=== PATIENT | male | born 1975 | race Caucasian/White ===

== ENCOUNTER → 2025-06-17 15:33 | Outpatient (BNVA) | payer OTHER, SELFPAY | PROVIDERS: Visit Provider Physician Assistant | DX: S60.872A Other superficial bite of left wrist, initial encounter (principal); W54.0XXA Bitten by dog, initial encounter; Z02.79 Encounter for issue of other medical certificate | CPT/HCPCS: 99203 ==

== ENCOUNTER → 2025-08-12 14:54 | Outpatient (BNVA) | payer OTHER, SELFPAY | PROVIDERS: Visit Provider Physician Assistant | DX: S46.211A Strain of muscle, fascia and tendon of other parts of biceps, right arm, initial encounter (principal); X58.XXXA Exposure to other specified factors, initial encounter | CPT/HCPCS: 99204 ==

== ENCOUNTER → 2025-08-18 14:36 | Outpatient (BNVA) | payer OTHER, SELFPAY | PROVIDERS: Visit Provider Emergency Medicine | DX: S46.211A Strain of muscle, fascia and tendon of other parts of biceps, right arm, initial encounter (principal); X50.3XXA Overexertion from repetitive movements, initial encounter | CPT/HCPCS: 99213 ==

== ENCOUNTER 2025-08-21 11:35 | Outpatient (AMB) | payer OTHER, SELFPAY ==
--- NOTE | 2025-08-21 11:40 | A.OFFVIS_ITS ---
Vital Signs 08/21/25 11:43 Height 6 ft Weight 220 lb BMI 29.8 Intake Visit Reasons: WASHER BLANKET-WC Right proximal bicep tear DOI 08/11/25 Intake Note: Deondre is a 50 year old male who presents today as a new patient for an evaluation of right bicep status post work injury on 08/11/25. He was seen at work [facility] and referred to orthopedics. 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 He reports a little pain and bruising. States his muscle has moved down towards crease of his elbow. He has been out of since injury. Allergies No Known Allergies Allergy (Verified 08/21/25 11:42) Medication List - Last Reconciled 08/21/25 by Gina Martins PA-C metoprolol succinate ER 100 mg PO DAILY HPI Comments Details: History of Present Illness The patient is a 50 year old male presenting for evaluation of a right arm injury. The injury occurred on 08/11 while he was working, delivering propane. He slipped on a slope and fell on his extended right arm while carrying something, at which point he felt a snap and experienced immediate pain. Following the injury, he was seen at the [facility]. The patient expresses concern about his long-term strength and function, as he is very active, performing his own home remodeling and landscaping, and his job requires physical labor. 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 - Functional Status: The patient has been out of work since the injury. - Hobbies: He is active and performs his own home remodeling and landscaping. [facility] Social History (Updated 08/21/25 @ 11:43 by JESUS MANUEL Carlson) Patient Tobacco Use Status: Never used Tobacco Current occupation: right hand dominant Review of Systems Narrative Review of Systems - Musculoskeletal: Reports feeling a snap and immediate pain in his right arm at the time of injury. - Psychological: Denies claustrophobia. 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 - Strength is intact on rotator cuff testing; external rotation strength is good, internal rotation strength on belly press test is good, and lift-off test is good, with no reported pain during activation. Vital Signs: BMI result Body Mass Index 29.8 Assessment & Plan Assessment & Plan (1) Rupture of right proximal biceps tendon: Code(s): S46.211A - Strain of muscle, fascia and tendon of other parts of biceps, right arm, initial encounter Category: Medical Plan Plan 1. Traumatic Rupture Of Proximal Biceps Tendon Of Right Arm The patient sustained a traumatic rupture of the proximal long head of the biceps tendon in his right arm. He was counseled that this injury is typically managed non-operatively, as one of the two proximal attachments remains intact, and that surgical repair would be difficult now that nearly two weeks have passed since the injury due to tendon retraction and scarring. He was informed about the expected cosmetic outcome, a Kosta deformity, and the potential for a minor (approximately 5-10%) loss of strength, but was reassured that his overall long-term function should not be significantly limited. The patient's main concern is function, and he verbalized acceptance of the cosmetic outcome and the non-operative plan. A stat MRI of the right shoulder will be ordered, pending workman's compensation approval, to confirm the diagnosis, assess for any associated rotator cuff injury, and for documentation purposes. A referral will be placed for physical therapy at [facility] in [place], which will also require approval from workman's compensation. He will remain out of work with a restriction of no lifting, pushing, or pulling with the right upper extremity for 4-6 weeks, and an updated work note will be provided. Consent Patient was informed and verbally consented to the use of an ambient scribe for clinic note documentation during this visit. Orders: Orders MR shoulder RT wo con Today M75.81 - Other shoulder lesions, right shoulder PT Evaluation and Treatment Today S46.211A - Strain of muscle, fascia and tendon of other parts of biceps, right arm, initial encounter Coding Level of Care Code New Pt Level 3 (19186) Add On Problem Visit Only Diagnoses Rupture of right proximal biceps tendon S46.211A
[2025-08-21 11:43] VITALS: BMI 29.8
--- OUTSIDE RECORDS SUMMARY | 2025-08-21 13:42 | XMS_ITS | Patient Health Record ---
Author Organization [facility] Address [address] [place] [address] Care Team Providers Care Truck Terminal Manager Name Role Phone Sanjiv Farias MD Primary Care Provider Unavailab Alejandra Chung Unavailable [phone] Allergies No Known Allergies Reason For Referral No Information Medications Medication SIG (Take, Route, Frequency, Duration) Notes Start Date End Date Status Metoprolol Succinate 100 MG 1 capsule Orally Once a day Active Social History Tobacco Use: Social History Observation Description Date Details (start date - stop date) Never Smoker NA - NA Tobacco use other than smoking: Question Answer Notes Are you an other tobacco user? No Tobacco Control (Standard) Question Answer Notes Tobacco use: Nonsmoker Additional Findings: Tobacco non-user Current no nsmoker AUDIT-C (Standard) Question Answer Notes Did you have a drink contain ing alcohol in the past year? Yes How often did you have six o r more drinks on one occasion in the past year? Declined to specify (0 point) How many drinks did you have on a typical day when you were drinking in the past year? Declined to specify (0 point) How often did you have a dri nk containing alcohol in the past year? 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) Plantar fasciitis, bilateral (M72.2) Active confirmed Vital Signs Blood pressure diastolic 80 mm Hg 09/08/2024 Height 6 ft in 09/08/2024 Blood pressure systolic 140 mm Hg 09/08/2024 Weight 225 lbs 09/08/2024 BMI 30.51 kg/m2 09/08/2024 Encounters Encounter Location Date Provider Diagnosis [facility] [place] [address] 09/08/2024 Alejandra West Pain in right foot M79.671 ; Plantar fasciitis, bilateral M72.2 ; Calcaneal spur, right foot M77.31 ; Other myositis of right foot M60.871 ; Bursitis of right foot M77.51 ; Pain in left foot M79.672 ; Calcaneal spur, left foot M77.32 ; Other myositis of left foot M60.872 and Bursitis of left foot M77.52 Assessments Encounter Date Diagnosis (ICD Code) Assessment Notes Treatment Notes Treatment Clinical Notes Section Notes 09/08/2024 Pain in right foot (ICD-10 - M79.671) 09/08/2024 Plantar fasciitis, bilateral (ICD-10 - M72.2) Patient Educated with: HEEL CORD STRETCHES.pdf (HEEL CORD STRETCHES.pdf) Patient Educated with: RICE THERAPY.pdf (RICE THERAPY.pdf) 09/08/2024 Calcaneal spur, right foot (ICD-10 - M77.31) 09/08/2024 Other myositis of right foot (ICD-10 - M60.871) 09/08/2024 Bursitis of right foot (ICD-10 - M77.51) 09/08/2024 Pain in left foot (ICD-10 - M79.672) 09/08/2024 Calcaneal spur, left foot (ICD-10 - M77.32) 09/08/2024 Other myositis of left foot (ICD-10 - M60.872) 09/08/2024 Bursitis of left foot (ICD-10 - M77.52) Plan Of Treatment Pending Test Test Name Order Date X ray : Foot, left 3V 09/08/2024 X ray : Foot, right 3V 09/08/2024 Insurance Providers Payer Name Payer Address Payer Phone Subscriber Number Group Number Insured Name Patient Relationship to Insured Coverage Start Date Coverage End Date Albino Quijanoem [address] [place] [address] [id number] Deondre Magana Self - patient is the insured Medical (General) History Medical History History ICD Code High Blood Pressure
--- OUTSIDE RECORDS SUMMARY | 2025-08-21 13:42 | XMS_ITS ---
Author Name [facility] Organization Unknown Care Team Organization Name Specialty Phone Email Start Date End Da te [employer] Outbound ADT-[facility] 08/15 Office of the Microfilming Document Preparer ([facility]) 07/18/2024
--- OUTSIDE RECORDS SUMMARY | 2025-08-21 13:42 | XMS_ITS | Clinical Summary ---
Author Organization [facility] Address [address] [place] [address] Care Team Providers Care Hog Driver Name Role Phone Unavailable Primary Care Provider Unavailabl e Social History Tobacco Use Types Packs/Day Years Used Date Smoking Tobacco: Never Assessed Sex and Gender Information Value Date Recorded Sex Assigned at Not on file Legal Sex Male 1:53 PM EDT Gender Identity Not on file Sexual Orientation Not on file Plan of Treatment Health Maintenance Due Date Last Done Comments Hepatitis C Virus Screening 1976 HIV Screening 1989 DTaP/Tdap/Td Vaccines (1 - Tdap) 1995 Hepatitis B Vaccines (1 of 3 - 19+ 3-dose series) 1995 COVID-19 Vaccine (2024-2 6 season) 2025 Pneumococcal Vaccine: Pediat malinda (0-5 Years) and At-Risk Patients (6 to 49 Years) Aged Out No longer eligible b ased on patient's age to complete this topic
== END 2025-08-21 12:12 | disposition home or self-care (01) ==
LOC: HO.HOS 11:35
PROVIDERS: Visit Provider Physician Assistant
DX: S46.211A Strain of muscle, fascia and tendon of other parts of biceps, right arm, initial encounter (principal)
CPT/HCPCS: 99203; G2211

== ENCOUNTER → 2025-08-21 11:35 | Outpatient (BNVA) | payer OTHER, SELFPAY | PROVIDERS: Visit Provider Physician Assistant | DX: S46.211A Strain of muscle, fascia and tendon of other parts of biceps, right arm, initial encounter (principal); M75.81 Other shoulder lesions, right shoulder | CPT/HCPCS: 99202 ==